=== PATIENT | male | born 1975 | race Caucasian/White ===

== ENCOUNTER 2020-09-17 15:13 | Observation (INO) | payer OTHER, SELFPAY ==
--- NOTE | ~2020-09-17 | US_ITS ---
EXAMINATION: US retroperitoneal duplex ltd, US renal BI DATE: 09/19/2020 16:39 INDICATION: Right renal infarct. TECHNIQUE: 1. Multiple grayscale and color Doppler images of the kidneys were obtained. 2. Multiple grayscale and pulsed Doppler images of the aorta and renal arteries were obtained. COMPARISON: CT dated 09/17/2020 FINDINGS: Kidneys: The right kidney measures 11.5 x 5.7 x 5.6 cm. The left kidney measures 12.4 x 6.1 x 5.9 cm. The kidn eys demonstrate normal echogenicity. There is no hydronephrosis in either kidney. No stones identifi ed. The bladder is normal. Unremarkable prostate measuring approximately 3.6 x 3.4 x 3.5 cm Renal arteries/vascular: The mid abdominal aorta is normal in caliber measuring 1.9 cm in maximal diameter. The aorta peak sys tolic velocity is 139 cm/s. The right renal artery peak systolic velocity is 124 cm/s in the proximal segment, 67 cm/s in the mid segment, and 46 cm/s in the distal segment. The left renal artery peak s ystolic velocity is 114 cm/s in the proximal segment, 86 cm/s in the mid segment, and 39 cm/s in the distal segment. IMPRESSION: 1. Normal kidneys with no hydronephrosis. 2. No Doppler evidence of renal artery stenosis. Reviewed, dictated and finalized at location A. IMPRESSION: 1. Normal kidneys with no hydronephrosis. 2. No Doppler evidence of renal artery stenosis.
--- NOTE | ~2020-09-17 | CT_ITS ---
EXAMINATION: CT abdomen pelvis w con INDICATION: Right lower abdominal pain TECHNIQUE: Computed tomographic images of the abdomen and pelvis were obtained after the administrati on of 100 cc of Omnipaque 350 intravenous contrast. The dose-length product (DLP) was 1150.53 mGy-cm. Automated exposure control and iterative reconstruction technique were employed. COMPARISON: None available FINDINGS: There are patchy groundglass opacities of the visualized lung bases. The heart size is norm al. The liver, spleen, pancreas, gallbladder, and adrenal glands are normal. There are nonobstructing stones measuring 7 mm and 4mm in the left kidney. There is decreased perfusion in the lower pole of the right kidney. A 3 mm nonobstructing stone is present in the lower pole of the right kidney. No pa thologically enlarged abdominal or pelvic lymph nodes are identified. There is no free intraperitonea l gas or evidence of bowel obstruction. The appendix is normal. IMPRESSION: 1. Decreased perfusion in the lower pole of the right kidney which could reflect infarct. 2. Groundglass opacities of the visualized lung bases in a distribution consistent with COVID 19 pneu monia. These findings were discussed with Dr. Grisel Shea MD in the Emergency Department at 1755 hours on 09/17/2020. Reviewed, dictated and finalized at location A. IMPRESSION: 1. Decreased perfusion in the lower pole of the right kidney which could reflec t infarct. 2. Groundglass opacities of the visualized lung bases in a distribution consist ent with COVID 19 pneumonia. These findings were discussed with Dr. Grisel Shea MD in the Emergency De partment at 1755 hours on 09/17/2020.
--- NOTE | ~2020-09-17 | XR_ITS ---
XR abdomen/kub 1V 09/18/2020 11:42 INDICATION: Right lower abdominal pain TECHNIQUE: KUB COMPARISON: None FINDINGS: Bowel gas pattern is normal. There is no evidence of free air, mass, organomegaly, ascites or obstruction. No abnormal calculi are seen. The bones appear intact. There are patchy bilateral infiltrates of the mid and lower lungs, suspicious for pneumonia. IMPRESSION: 1: No acute abdominal abnormality identified. 2: Patchy bilateral infiltrates of the mid and lower lungs, suspicious for pneumonia. Recommend omero elation with chest x-ray. Reviewed, dictated and finalized at location A. IMPRESSION: 1: No acute abdominal abnormality identified. 2: Patchy bilateral infiltrates of the mid and lower lungs, suspicious for pne umonia. Recommend correlation with chest x-ray.
[2020-09-17 15:16] VITALS: BP 146/81; PULSE 63; RESP 16; TEMP 36.6; O2SAT 99
[2020-09-17 15:51] LABS: Basophils Percent Auto 0.4 % (0.2-1.2); Eosinophils Percent Auto 0.2 % (0-4.4); Hematocrit 44.3 % (42.0-52.0); Hemoglobin 14.8 g/dL (14.0-18.0); Immature Granulocyte Absolute 0.02 K/mm3 (0.00-0.031); Immature Granulocyte Percent A 0.4 % (0-0.5); Lymphocytes Percent Auto 16.7 % (18.3-44.2); Mean Corpuscular HGB Conc 33.4 g/dl (32-36); Mean Corpuscular Hemoglobin 28.6 pg (26-34); Mean Corpuscular Volume 85.5 fl (80-100); Mean Platelet Volume 11.1 fl (7.4-10.4); Monocytes Absolute Auto 0.4 K/mm3 (0.1-0.6); Monocytes Percent Auto 6.7 % (2.6-8.5); Neutrophils Absolute Auto 4.1 K/mm3 (1.3-6.7); Neutrophils Percent Auto 75.6 % (45.5-73.1); Platelet Count Result 135 k/mm3 (150-375); Red Blood Count 5.18 M/mm3 (4.6-6.20); Red Cell Distribution Width 12.4 % (11.5-14.5); White Blood Count 5.4 K/mm3 (4.5-10.0)
--- NOTE | 2020-09-17 15:58 | ED.ABDPAIN ---
HPI - Abdominal Pain General Chief Complaint: Abdominal Pain Stated Complaint: abdominal pain and testicular pain Time Seen by Provider: 09/17/20 15:31 Source: patient Mode of arrival: ambulatory Limitations: no limitations History of Present Illness HPI narrative: This is a 45 year old male who presents for evaluation right lower abdominal pain. He states he developed right lower abdominal pain this morning. He reports pain that radiates to his right groin . He denies testicular swelling, redness or tenderness. He has nausea and vomiting. He states his pain started after vomiting . He reports he had a fever on Tuesday but he denies any fever since. HE also reports a mild cough that started on Tuesday. He denies shortness of breath. Related Data Home Medications Medication Instructions Recorded Confirmed cetirizine [Zyrtec] 10 mg PO DAILY 09/17/20 multivitamin [Multi-Day] 1 tablet PO DAILY 09/17/20 Allergies Allergy/AdvReac Type Severity Reaction Status Date / Time No Known Allergies Allergy Verified 09/17/20 15:32 Review of Systems Review of Systems: All systems reviewed & are unremarkable except as noted in HPI and below PMFSH Past Medical History Medical History (Updated 09/17/20 @ 19:42 by Grisel Shea MD) Patient denies medical problems Surgical History Surgical History (Updated 09/17/20 @ 19:39 by Grisel Shea MD) H/O inguinal hernia repair Social History Social History Smoking status: Never smoker Exam Const: General: no acute distress and alert Orientation/consciousness: patient oriented x3 Eyes: EOM: EOMs intact bilaterally Resp: Effort & Inspection: normal respiratory effort and no retractions Auscultation: clear to auscultation bilaterally Cardio: Rate: regular rate Rhythm: regular rhythm Heart sounds: no murmurs GI: GI Palp: Yes Soft to palpation, Yes Tenderness to palpation present (GI) (RLQ), No Guarding due to palpation present (GI) and No Rigid due to palpation Auscultation: normal bowel sounds : Male General Exam: Yes normal external exam Penis: Yes circumcised Scrotum: scrotum normal Testes: no epidiymal tenderness and no testicular tenderness Skin: General skin exam: normal color Rashes: no rashes Neuro: General: patient oriented x3, moves all extremities and CN's II-XI intact bilaterally Course Reevaluation(s) Reevaluation #1: I discussed with patient CT showing renal infarct and likely covid pneumonia. He may have increased clotting due to possible covid. His testicular exam is normal. Date: 09/17/20 Time: 18:00 Consultations Consultation #1: I Discussed case with swapnil márquez who accepts patient to hospitalist service. Date: 09/17/20 Time: 18:20 Vital Signs Vital signs: Vital Signs Temperature 97.9 F 09/17/20 15:16 Pulse Rate 63 09/17/20 15:16 Respiratory Rate 16 09/17/20 15:16 Blood Pressure 146/81 H 09/17/20 15:16 Pulse Oximetry 99 09/17/20 15:16 Temperature 97.9 F 09/17/20 15:16 Pulse Rate 67 09/17/20 18:29 Respiratory Rate 20 09/17/20 18:29 Blood Pressure 147/92 H 09/17/20 18:29 Pulse Oximetry 99 09/17/20 18:29 MDM - Abdominal Pain Lab Data Attestation: I reviewed the patient's lab results. Result diagrams: 09/17/20 15:42 09/17/20 15:42 Labs: Lab Results 09/17/20 09/17/20 09/17/20 Range/Units 15:42 15:42 15:46 WBC 5.4 (4.5-10.0) K/mm3 RBC 5.18 (4.6-6.20) M/mm3 Hgb 14.8 (14.0-18.0) g/dL Hct 44.3 (42.0-52.0) % MCV 85.5 (80-100) fl MCH 28.6 (26-34) pg MCHC 33.4 (32-36) g/dl RDW 12.4 (11.5-14.5) % Plt Count 135 L (150-375) k/mm3 MPV 11.1 H (7.4-10.4) fl Immature Gran % (Auto) 0.4 (0-0.5) % Neut % (Auto) 75.6 H (45.5-73.1) % Lymph % (Auto) 16.7 L (18.3-44.2) % [place] % (Auto) 6.7 (2.6-8.5) % Eos % (Auto) 0.2 (0-4.4) % Baso % (Auto) 0.4 (0.2-1.2) % Lymph # (
[2020-09-17 16:03] LABS: Alanine Aminotransferase 50 U/L (4-50); Albumin Level 4.6 g/dL (3.5-5.1); Alkaline Phosphatase 81 U/L (38-126); Anion Gap 11 mmol/L (8-16); Aspartate Amino Transferase 49 U/L (17-59); Bilirubin,Total 0.6 mg/dL (0.2-1.3); Blood Urea Nitrogen 16 mg/dL (9-20); Calcium 9.3 mg/dL (8.4-10.2); Carbon Dioxide 27 mmol/L (22-30); Chloride 100 mmol/L (98-107); Estimated CRCL calculation 148 ml/min; Estimated Glomerular Filt Rate > 60; Glucose 108 mg/dL (65-110); Lipase 59 U/L (23-300); Potassium 4.1 mmol/L (3.4-5.0); Sodium 138 mmol/L (137-145)
[2020-09-17] MEDS: SODIUM CHLORIDE 0.9% IV 1,000 ML 999 ML IV CONT (16:21)
[2020-09-17] MEDS: ONDANSETRON INJ 4 MG/2 ML VIAL IV PUSH (16:26)
[2020-09-17 16:28] LABS: Add Urine Microscopic? YES; Amorphous Sediment Urine Few; Appearance Urine Cloudy (Clear); Bilirubin Urine Negative (Negative); Blood Urine Negative (Negative); Color Urine Yellow (Yellow); Glucose Urine UA Negative (Negative); Ketones Urine Negative (Negative); Leukocyte Esterase Ur Negative LEU/UL (Negative); Mucus Urine Rare /lpf; Nitrate Urine Negative (Negative); Protein Urine 1+ mg/dL (Negative); RBC Urine 0-2 /hpf (0-2); Specific Grav Ur 1.023 (1.001-1.035); Squamous Epithelial Cell Urine Rare /hpf (Few); Urobilinogen Urine Negative mg/dL (<2.0); WBC Urine 0-3 /hpf
[2020-09-17] MEDS: HYDROmorphone HCL INJ (*CRX) 1 MG/ML SYR IV PUSH ×2 (16:29→20:37)
[2020-09-17 16:33] VITALS: BP 129/75; PULSE 61; RESP 12; O2SAT 97
[2020-09-17 17:54] VITALS: BP 118/76; PULSE 63; RESP 18; O2SAT 97
[2020-09-17 18:29] VITALS: BP 147/92; PULSE 67; RESP 20; O2SAT 99
[2020-09-17] MEDS: ENOXAPARIN 120 MG/0.8 ML SYRINGE SUB-Q (18:30)
[2020-09-17 18:55] LABS: Prothrombin Time 12.7 Seconds (11.1-14.7)
[2020-09-17 18:56] LABS: Partial Thromboplastin Time 25.7 SECONDS (22.3-36.8)
[2020-09-17 19:36] VITALS: BP 135/90; PULSE 62; RESP 18; O2SAT 97
[2020-09-17 19:45] VITALS: BP 127/63; PULSE 58; RESP 20; TEMP 36.3; O2SAT 97; BMI 34.2
[2020-09-17] MEDS: SODIUM CHLORIDE 0.9% IV 1,000 ML 125 ML IV CONT (20:32)
[2020-09-18] VITALS: BP 141/89; PULSE 64; RESP 18; TEMP 36.4; O2SAT 97
[2020-09-18] MEDS: HYDROmorphone HCL INJ (*CRX) 1 MG/ML SYR IV PUSH ×2 (01:25→06:06)
--- NOTE | 2020-09-18 03:53 | PM.IMHP ---
H&P: HPI History of Present Illness Date/Time: 09/18/20 03:53 Chief Complaint: right flank pain Narrative: This is a 45-year-old male with known significant past medical history the presented to the emergency room due to flank pain radiating to the right groin area. THIS STARTED EARLY IN THE MORNING HE WAITED OUT THINKING THAT HE WILL GO AWAY HOWEVER HE BECAME WORSE AND DECIDED TO COME TO THE EMERGENCY ROOM. HE DENIES ANY FEVERS ANY CHILLS ANY RIGORS ANY COUGH ANY SPUTUM PRODUCTION NO SHORTNESS OF BREATH NO DIARRHEA NO NAUSEA NO VOMITING. PRELIMINARY WORKUP WAS SIGNIFICANT FOR CT OF ABDOMEN AND PELVIS WHICH SHOWED INFILTRATES OF THE LUNGS BILATERAL SUSPICIOUS FOR COVID-19 PNEUMONIA BUT ALSO WAS SIGNIFICANT FOR SEVERAL STONES FOUND AT VARIOUS STAGES OF PASSING IN THE URETERS AND KIDNEYS WELL KIDNEY INFARCT. AT THE TIME OF MY VISIT PATIENT DENIED ANY OTHER ISSUES. Review of Systems Review of Systems: RIGHT FLANK PAIN Constitutional: Constitutional: Denies chills, Denies fatigue, Denies fever(s) and Denies malaise Eyes: Eyes: Denies change in vision ENT: Denies dysphagia, Denies nasal congestion, Denies nasal discharge, Denies nasal obstruction and Denies odynophagia Cardiovascular: Cardiovascular: Denies chest pain, Denies chest pain at rest, Denies chest pain with activity, Denies irregular heart rhythm, Denies radiating jaw, neck or arm pain, Denies palpitations and Denies orthopnea Respiratory: Respiratory: Denies cough, Denies dyspnea and Denies wheezing Gastrointestinal: Gastrointestinal: Reports abdominal pain ( RIGHT FLANK PAIN), Denies GI cramping, Denies dyspepsia, Denies heartburn, Denies diarrhea, Denies nausea and Denies vomiting Genitourinary: Genitourinary: Denies dysuria and Reports flank pain ( RIGHT-SIDED) Integumentary/Breasts: Skin/Breast: Reports system reviewed and no additional complaints, except as docu Neurologic: Reports system reviewed and no additional complaints, except as documented Psychiatric: Psychiatric: Reports no additional psychiatric complaints Endocrine: Endocrine: Reports no additional endocrine complaints Hematologic/Lymphatic: Hematologic/Lymphatic: Reports no additional hematologic/lymphatic complaints Allergic/Immunologic: Allergic/Immunologic: Reports no additional allergic/immunologic complaints PMF Past Medical History Medical History (Updated 09/18/20 @ 04:14 by Sherley Sheffield MD) Patient denies medical problems Surgical History Surgical History (Updated 09/17/20 @ 19:39 by Grisel Shea MD) H/O inguinal hernia repair Family History Family History (Updated 09/17/20 @ 20:25 by Maura Camp RN) Father Cerebrovascular accident COVID Heart attack Diabetes mellitus Social History Social History Smoking status: Never smoker Alcohol intake: former Substance use: never Gender identity (if verbalized by the patient): Male Spiritual care concerns: No Meds Home Medications and Allergies Home Medications Medication Instructions Recorded Confirmed Type Claritin 10 mg PO DAILY 09/17/20 09/17/20 History multivitamin [Multi-Day] 1 tablet PO DAILY 09/17/20 09/17/20 History Allergies Allergy/AdvReac Type Severity Reaction Status Date / Time No Known Allergies Allergy Verified 09/17/20 15:32 Vital Signs Vital Signs - 24 hr 09/17/20 15:16 09/17/20 16:33 09/17/20 17:54 Temperature 97.9 F Pulse Rate 63 61 63 Respiratory Rate 16 12 18 Blood Pressure 146/81 H 129/75 118/76 Pulse Oximetry 99 97 97 09/17/20 18:29 09/17/20 19:36 09/17/20 19:45 Temperature 97.4 F L Pulse Rate 67 62 58 L Respiratory Rate 20 18 20 Blood Pressure 147/92 H 135/90 127/63 Pulse Oximetry 99 97 97 09/18/20 00:00 Temperature 97.5 F L Pulse Rate 64 Respiratory Rate 18 Blood Pressure 141/89 H Pulse Oximetry 97 Exam Narrative: LAYING IN BED Const: General: cooperative, comfortable, no acute distress, well develope
[2020-09-18 04:00] VITALS: BP 120/76; PULSE 56; RESP 18; TEMP 36.4; O2SAT 96
[2020-09-18] MEDS: SODIUM CHLORIDE 0.9% IV 1,000 ML 125 ML IV CONT ×2 (06:06→15:50)
[2020-09-18 06:36] LABS: Basophils Percent Auto 0.3 % (0.2-1.2); Eosinophils Percent Auto 0.5 % (0-4.4); Hematocrit 40.5 % (42.0-52.0); Hemoglobin 13.4 g/dL (14.0-18.0); Immature Granulocyte Absolute 0.03 K/mm3 (0.00-0.031); Immature Granulocyte Percent A 0.5 % (0-0.5); Immature Platelet Fraction Pct 8.1 % (0.9-11.2); Lymphocytes Absolute Auto 1.08 K/mm3 (0.9-3.2); Lymphocytes Percent Auto 16.3 % (18.3-44.2); Mean Corpuscular HGB Conc 33.1 g/dl (32-36); Mean Corpuscular Hemoglobin 28.5 pg (26-34); Mean Platelet Volume 10.9 fl (7.4-10.4); Monocytes Absolute Auto 0.5 K/mm3 (0.1-0.6); Monocytes Percent Auto 7.7 % (2.6-8.5); Neutrophils Absolute Auto 4.9 K/mm3 (1.3-6.7); Neutrophils Percent Auto 74.7 % (45.5-73.1); Platelet Count Result 130 k/mm3 (150-375); Red Blood Count 4.71 M/mm3 (4.6-6.20); Red Cell Distribution Width 12.4 % (11.5-14.5); White Blood Count 6.6 K/mm3 (4.5-10.0)
[2020-09-18 06:49] LABS: Alanine Aminotransferase 49 U/L (4-50); Albumin Level 3.9 g/dL (3.5-5.1); Alkaline Phosphatase 70 U/L (38-126); Anion Gap 5 mmol/L (8-16); Aspartate Amino Transferase 49 U/L (17-59); Bilirubin,Total 0.5 mg/dL (0.2-1.3); Blood Urea Nitrogen 12 mg/dL (9-20); Calcium 8.3 mg/dL (8.4-10.2); Carbon Dioxide 31 mmol/L (22-30); Chloride 99 mmol/L (98-107); Estimated CRCL calculation 133 ml/min; Estimated Glomerular Filt Rate > 60; Glucose 106 mg/dL (65-110); Potassium 4.2 mmol/L (3.4-5.0); Sodium 135 mmol/L (137-145)
[2020-09-18 08:00] VITALS: BP 133/87; PULSE 60; RESP 16; TEMP 36.4; O2SAT 96
[2020-09-18] MEDS: LORATADINE 10 MG TABLET PO (09:56)
--- NOTE | 2020-09-18 10:39 | WPDURCON ---
Assessment and Plan Assessment and plan (1) Renal infarct: Code(s): N28.0 - Ischemia and infarction of kidney Status: Acute Assessment and Plan: Possibly secondary to COVID 19 and increased clotting factors, although he denies a previous history of blood clots. Extremities appear to have good blood flow, capillary refill is normal, no calf tenderness, erythema or pain bilaterally, and he denies chest pain. Would recommend consulting vascular to further evaluate, starting anticoagulants if patient is a good candidate. No further surgical evaluation is necessary at this time. I have discussed this plan with Dr. Scott (2) Bilateral kidney stones: Code(s): N20.0 - Calculus of kidney Status: Acute Assessment and Plan: A 7 and 4mm stone is present in the left kidney and a 3mm in the lower pole of the right kidney, all are non obstructive. Will obtain a KUB while here for potential ESWL of the left side in the future, to see if stones are visible. No surgical plans at any time in the near future, his pain is not caused by these stones as they are non obstructive. Urology Consult Note HPI Date Seen: 09/18/20 Requesting Physician: Karlee Hidalgo MD Primary Care Provider: Jose Raul AlmanzarJr. MD Consult Narrative Narrative: Osito Shafer is a 45 year old male who presented to the ER yesterday for acute onset of right lower quadrant pain that developed yesterday morning suddenly. He states he was walking through his garage and the pain dropped him to his knees and made him vomit. He thought he was passing a kidney stone as he has passed several spontaneously in the past. His creatinine on arrival was 0.80, WBC was 6.[address] scan showed decreased perfusion to the lower pole of the right kidney, suggesting an infarct, as well as opacities consistent in the lungs with COVID [address] also shows 3 non obstructive kidney stones measuring 7 and 4mm in the left kidney and 3mm in the right kidney. He denies hematuria, frequency, urgency, dysuria or flank pain at this time. He is afebrile and his vitals are stable. He is not short of breath and is resting comfortably in bed. Review of Systems Cardiovascular: Cardiovascular: Denies chest pain Respiratory: Respiratory: Reports no additional respiratory complaints Gastrointestinal: Gastrointestinal: Reports abdominal pain, Denies nausea and Denies vomiting Genitourinary: Genitourinary: Denies hematuria, Denies dysuria, Denies flank pain, Denies testicular pain, Denies urinary frequency and Denies urinary hesitancy PMF Past Medical History Medical History Patient denies medical problems Surgical History Surgical History H/O inguinal hernia repair Family History Family History Father Cerebrovascular accident COVID Heart attack Diabetes mellitus Social History Social History Smoking status: Never smoker Alcohol intake: former Substance use: never Gender identity (if verbalized by the patient): Male Spiritual care concerns: No Meds Home Medications and Allergies Home Medications Medication Instructions Recorded Confirmed Type Claritin 10 mg PO DAILY 09/17/20 09/17/20 History multivitamin [Multi-Day] 1 tablet PO DAILY 09/17/20 09/17/20 History Allergies Allergy/AdvReac Type Severity Reaction Status Date / Time No Known Allergies Allergy Verified 09/17/20 15:32 Vital Signs Vital Signs - 24 hr 09/17/20 15:16 09/17/20 16:33 09/17/20 17:54 Temperature 97.9 F Pulse Rate 63 61 63 Respiratory Rate 16 12 18 Blood Pressure 146/81 H 129/75 118/76 Pulse Oximetry 99 97 97 09/17/20 18:29 09/17/20 19:36 09/17/20 19:45 Temperature 97.4 F L Pulse Rate 67 62 58 L Respira
[2020-09-18 11:58] VITALS: BMI 34.2
--- NOTE | 2020-09-18 13:21 | PCNSR ---
On 09/18/20, the student, Candie Ann, provided care and [facility]. I have reviewed the student's documentation and agree with the findings.
--- NOTE | 2020-09-18 13:35 | PM.IMPN ---
Progress Note: A&P Assessment and Plan (1) Kidney stone on right side: Code(s): N20.0 - Calculus of kidney Status: Acute Assessment and Plan: Sodium chloride 125 per hour urology consult thank you for your recommendations I&Os strain all urine supportive care (2) Pneumonia: Code(s): J18.9 - Pneumonia, unspecified organism Status: Acute Assessment and Plan: infiltrate ground-glass opacities found on CT started on Rocephin and Zithromax COVID swab pending DC antibiotics when COVID swab comes back. (3) Renal infarct: Code(s): N28.0 - Ischemia and infarction of kidney Status: Acute Assessment and Plan: Monitor cardiology consult thank you might need vascular surgery (4) Flank pain: Code(s): R10.9 - Unspecified abdominal pain Status: Acute Assessment and Plan: likely from the kidney stone Dilaudid 1 mg IV Q 4 p.r.n. for pain Zofran 4 mg IV push Q 4 p.r.n. for nausea (5) COVID-19: Code(s): U07.1 - COVID-19 Status: Acute Assessment and Plan: CT found ground-glass opacities congruent with COVID-19 a azithromycin and Rocephin started until COVID comes back COVID swab pending no need oxygen patient on room air no signs or symptoms noted Subjective Date/time seen: 09/18/20 12:15 Interval history: patient is a 45-year-old male with no known significant past medical history that presents the emergency room due to flank pain that is radiating to the right groin. Patient stated that his pain is still there and it is 6/10 and it is an aching however it is better. Patient also said that he is fatigued and tired he has been leading up to this. He also stated that he had some sweats however that is normal as well. Patient also said that he has been able to urinate in he feels like he is emptying each time. Urology has been consulted and saw the patient wanted cardiology to be involved since the patient has renal infarct shown on his CT. It also showed several stones or passing in the kidneys as well. Patient denies chest pain, shortness of breath, nausea, vomiting, diarrhea, constipation, fevers, chills, numbness tingling, weakness or syncope. Review of Systems Review of Systems: All systems reviewed & are unremarkable except as noted in HPI and below Exam Const: General: cooperative, comfortable, no acute distress, well developed, alert and awake Nutritional Appearance: overweight Orientation/consciousness: patient oriented x3 HENMT: Head: normal to inspection, normocephalic and atraumatic Ears: hearing grossly normal bilaterally General nose exam: Normal external nose present Face and sinus: normal facial exam Eyes: General: appearance normal, both eyes and all related structures Alignment and Position: alignment normal Sclera: sclerae normal Pupils: Equal, round and reactive pupils present EOM: EOMs intact bilaterally Neck: Neck: full ROM, no lymphadenopathy, supple and no JVD Thyroid: thyroid normal Lymphatic: no lymphadenopathy noted Resp: Effort & Inspection: normal respiratory effort and able to speak in complete sentences Auscultation: clear to auscultation bilaterally, no crackles, no rales, no rhonchi and no wheezes Cardio: Jugular venous distension: no JVD Rate: regular rate Rhythm: regular rhythm Heart sounds: S1 normal heart sound present and S2 normal heart sound present GI: Inspection: normal to inspection : General: No no CVA tenderness and Yes deferred Back/Spine/Pelvis: Back: No no CVA tenderness Skin: General skin exam: normal color Rashes: no rashes Wounds: no wounds Neuro: General: patient oriented x3 and CN's II-XI intact bilaterally Cranial nerves: Yes CN's II-XII intact bilaterally and Yes Equal, round and reactive pupils present Cognition (Neuro): normal cognition Speech: normal speech Gait exam (Ne
[2020-09-18 14:00] VITALS: BP 132/70; PULSE 72; RESP 18; TEMP 36.7; O2SAT 95
[2020-09-18 17:00] VITALS: BP 139/81; PULSE 65; RESP 18; TEMP 36.7; O2SAT 97
[2020-09-18 18:09] LABS: SARS-CoV-2 RNA PCR Negative
--- NOTE | 2020-09-18 19:46 | PM.CNCAR ---
Assessment and Plan Assessment and plan (1) Renal infarct: Code(s): N28.0 - Ischemia and infarction of kidney Status: Acute Assessment and Plan: Healthy appearing WM w/ possible renal infarct. Has been afebrile , denies IV drug use, and white count is normal so endocarditis is not likely. No evidence of AFib at this point. Exam and history are fairly unremarkable so we may not find anything; this may be an artifact but we should rule out myxoma, tumor size, cardiac thrombus, severe aortic atherosclerosis etc Agree with evaluation for cardioembolic source. Will schedule an echo tomorrow and if there is nothing obvious a GABE to follow. Consider a renal artery ultrasound or a CTA of the aorta and secondary vessels (yojana right renal artery) to evaluate the vasculature of the abdomen. (2) Pneumonia: Code(s): J18.9 - Pneumonia, unspecified organism Status: Acute Assessment and Plan: Questionable pneumonia by CT scan. No sx except sweats last w/e. WBC WNL Will order a CXR. History of Present Illness History of Present Illness Consult date/time: 09/18/20 19:46 Reason For Visit: Right Renal Infarct, Pneumonia, Suspected COVID Narrative: Date of service 09/18/2020: Mr. Osito Shafer is a 45-year-old white male [place] whom we were asked to see at the request of the hospitalist for our advice and opinion regarding his renal infarct and possible cardiac source of emboli, in consultation. The patient felt somewhat bad over the weekend with nasal congestion and sudden sweats, thinking he had a cold. He improved but on Tuesday he had sudden nausea and vomiting, Right flank pain radiating to the right groin. the pain was so bad he had to lie on the ground. CT of the abdomen and pelvis suggested a possible segmental right renal infarction as well as kidney stones. (it also showed pulmonary infiltrates; he was started on antibiotics and is COVID screen was negative. )He was seen by Dr. Scott who recommended evaluation for cardioembolic source such as vegetations, AFib etc. and a vascular surgery consultation to evaluate his renal artery. The patient denies any drug use. No recent infections. No history of any palpitations. No rashes or skin lesions. No definite fevers. No history of any GRIJALVA or chest pain. this episode was much different than when he had passed a kidney stone in the past. No cough, wheezing or shortness of breath. Review of Systems Constitutional: Constitutional: Reports fatigue Eyes: Eyes: Reports no additional eye complaints ENT: Denies epistaxis and Reports nasal congestion Cardiovascular: Cardiovascular: Denies chest pain, Denies leg edema, Denies lightheadedness and Denies palpitations Respiratory: Respiratory: Denies chest congestion, Denies cough, Denies hemoptysis, Denies dyspnea, Denies dyspnea on exertion and Denies wheezing Gastrointestinal: Gastrointestinal: Reports abdominal pain, Denies melena and Denies hematochezia Comments: no history of any esophageal strictures Genitourinary: Genitourinary: Denies hematuria, Denies dysuria, Reports flank pain and Denies urinary frequency Musculoskeletal: Musculoskeletal: Denies back pain Integumentary/Breasts: Skin/Breast: Denies rash Neurologic: Denies confusion Psychiatric: Psychiatric: Denies confusion [facility] Past Medical History Medical History (Updated 09/18/20 @ 22:07 by Georgina Rodriguez MD) Kidney stones Patient denies medical problems Surgical History Surgical History H/O inguinal hernia repair Family History Family History (Updated 09/18/20 @ 22:08 by Georgina Rodriguez MD) Father Cerebrovascular accident COVID Heart attack Diabetes mellitus Mother Motor vehicle accident Social History Social History (Updated 09/18/20 @ 22:09 by Georgina Sapp
[2020-09-18 21:47] VITALS: BP 142/63; PULSE 73; RESP 18; TEMP 36.4; O2SAT 97
[2020-09-19] VITALS (12 sets, daily range): BP systolic 121–150; BP diastolic 64–97; PULSE 66–127; RESP 11–23; TEMP 36.4; O2SAT 92–100
[2020-09-19] MEDS: SODIUM CHLORIDE 0.9% IV 1,000 ML 125 ML IV CONT ×3 (02:20→15:53)
[2020-09-19 06:37] LABS: Hematocrit 42.1 % (42.0-52.0); Hemoglobin 14.1 g/dL (14.0-18.0); Mean Corpuscular HGB Conc 33.5 g/dl (32-36); Mean Corpuscular Hemoglobin 28.6 pg (26-34); Mean Corpuscular Volume 85.4 fl (80-100); Mean Platelet Volume 11.3 fl (7.4-10.4); Platelet Count Result 151 k/mm3 (150-375); Red Blood Count 4.93 M/mm3 (4.6-6.20); Red Cell Distribution Width 12.1 % (11.5-14.5); White Blood Count 5.9 K/mm3 (4.5-10.0)
[2020-09-19 06:54] LABS: Alanine Aminotransferase 57 U/L (4-50); Albumin Level 3.9 g/dL (3.5-5.1); Alkaline Phosphatase 68 U/L (38-126); Anion Gap 11 mmol/L (8-16); Aspartate Amino Transferase 51 U/L (17-59); Bilirubin,Total 0.6 mg/dL (0.2-1.3); Blood Urea Nitrogen 11 mg/dL (9-20); Calcium 8.8 mg/dL (8.4-10.2); Carbon Dioxide 27 mmol/L (22-30); Chloride 101 mmol/L (98-107); Estimated CRCL calculation 133 ml/min; Estimated Glomerular Filt Rate > 60; Glucose 103 mg/dL (65-110); Magnesium 2.1 mg/dL (1.6-2.3); Potassium 3.8 mmol/L (3.4-5.0); Sodium 139 mmol/L (137-145)
--- NOTE | 2020-09-19 10:13 | WPDUROPN2 ---
Progress Note: A&P Assessment and Plan (1) Flank pain: Code(s): R10.9 - Unspecified abdominal pain Status: Acute (2) Renal infarct: Code(s): N28.0 - Ischemia and infarction of kidney Status: Acute Assessment and Plan: Appreciate Dr. Salinas's input. Plans for cardiac echo and possible GABE noted. Will plan renal artery ultrasound. Subjective Subjective Date/Time Seen: 09/19/20 10:13 Comfortable, undergoing cardiac echo Covid tests: negative Review of Systems Cardiovascular: Cardiovascular: Denies chest pain, Denies lightheadedness, Denies palpitations and Denies dyspnea Respiratory: Respiratory: Denies dyspnea Gastrointestinal: Gastrointestinal: Denies diarrhea, Denies nausea and Denies vomiting Genitourinary: Genitourinary: Denies hematuria and Denies dysuria Endocrine: Endocrine: Denies palpitations Exam Const: General: no acute distress Resp: Effort & Inspection: normal respiratory effort GI: Inspection: non-distended GI Palp: No abdominal tenderness and No Guarding due to palpation present (GI) Auscultation: normal bowel sounds Objective Data Vital Signs Vital Signs: Vital Signs - 24 hr 09/18/20 14:00 09/18/20 17:00 09/18/20 21:47 Temperature 98.0 F 98.1 F 97.6 F Pulse Rate 72 65 73 Respiratory Rate 18 18 18 Blood Pressure 132/70 139/81 142/63 H Pulse Oximetry 95 97 97 09/19/20 05:30 Temperature 97.6 F Pulse Rate 66 Respiratory Rate 18 Blood Pressure 121/74 Pulse Oximetry 96 Intake/Output Intake/Output: Intake & Output 09/16/20 09/17/20 09/18/20 09/19/20 23:59 23:59 23:59 23:59 Intake Total 1400 5880 250 Balance 1400 5880 250 Meds/Results Medications: Active Medications Generic Name Dose Route Start Last Admin Trade Name Freq PRN Reason Stop Dose Admin Hydromorphone HCl 1 mg 09/17/20 18:29 09/18/20 06:06 Hydromorphone Hcl Inj (*Crx) 1 Mg/Ml Syr IV PUSH 1 mg Q4H PRN Administration Pain Rated 7-10 Sodium Chloride 1,000 mls @ 125 mls/hr 09/17/20 18:30 09/19/20 02:20 Normal Saline Iv IV CONT 125 mls/hr .Q8H TAMIKA Administration Azithromycin 500 mg in 250 mls @ 250 mls/hr 09/18/20 22:00 09/18/20 22:33 Zithromax IVPB Infused Q24H TAMIKA Infusion Ceftriaxone Sodium/Dextrose 1 gm in 50 mls @ 100 mls/hr 09/18/20 21:00 09/18/20 20:50 Rocephin 1 Gm/D5w 50 Ml IVPB Infused Q24H TAMIKA Infusion Loratadine 10 mg 09/18/20 09:00 09/18/20 09:56 Loratadine 10 Mg Tablet PO 10 mg QAM TAMIKA Administration Ondansetron HCl 4 mg 09/17/20 18:29 Ondansetron Inj 4 Mg/2 Ml Vial IV PUSH Q4H PRN Nausea Radiology Results: ITS Impressions Abdomen/Pelvis CT 09/17/20 17:25 IMPRESSION: 1. Decreased perfusion in the lower pole of the right kidney which could reflect infarct. 2. Groundglass opacities of the visualized lung bases in a distribution consistent with COVID 19 pneumonia. These findings were discussed with Dr. Grisel Shea MD in the Emergency Department at 1755 hours on 09/17/2020. Abdomen X-Ray 09/18/20 12:09 IMPRESSION: 1: No acute abdominal abnormality identified. 2: Patchy bilateral infiltrates of the mid and lower lungs, suspicious for pneumonia. Recommend correlation with chest x-ray. Labs Labs: Laboratory Results - last 24 hr 09/17/20 09/19/20 09/19/20 18:24 06:19 06:19 WBC 5.9 RBC 4.93 Hgb 14.1 Hct 42.1 MCV 85.4 MCH 28.6 MCHC 33.5 RDW 12.1 Plt Count 151 MPV 11.3 H Sodium 139 Potassium 3.8 Chloride 101 Carbon Dioxide 27 Anion Gap 11 BUN 11 Creatinine 0.80 Estim Creat Clear Calc 133 Estimated GFR > 60 Glucose 103 Calcium 8.8 Magnesium 2.1 Total Bilirubin 0.6 AST 51 ALT 57 H Alkaline Phosphatase 68 Total Protein 7.0 Albumin 3.9 SARS-CoV-2 RNA (RT-PCR) Negative Quality VTE Prophylaxis VTE prophylaxis: mechanical ordered (scd)
[2020-09-19] MEDS: PERFLUTREN LIPID MICROSPHERES 1.5 ML VIAL DILUTED TO 10 ML TOTAL VOLUME IV PUSH (10:18)
--- NOTE | 2020-09-19 12:28 | PM.PNCARD ---
Progress Note: A&P Additional Plan 45-year-old man with: Right renal infarction otherwise has been in good health. Echocardiogram does not disclose any obvious reason for a cardioembolic event. As per Dr. castillo consult note I will proceed with a transesophageal echo this today to try to rule out a occult patent foramen ovale as a possible embolic source Karel Rodriguez MD [facility] Subjective Date/time seen: date of service:09/19/20 12:28 Interval history: 45-year-old man with: Right renal infarction with no prior cardiac/ vascular history or risk factors to explain this event. Consult the to see him to rule out a cardioembolic source. Patient is feeling better today flank pain is significantly better than yesterday. Discussed with the patient that his echocardiogram which I read a short time ago is unremarkable. Exam Const: General: comfortable and no acute distress Other: Somewhat anxious but otherwise comfortable patient HENMT: Mouth: Yes moist mucous membranes Eyes: Sclera: sclerae normal Pupils: Equal, round and reactive pupils present Neck: Neck: supple and no JVD Thyroid: thyroid normal Resp: Effort & Inspection: normal respiratory effort Auscultation: clear to auscultation bilaterally Cardio: Rate: regular rate Rhythm: regular rhythm Other: unremarkable cardiac exam GI: GI Palp: Yes Soft to palpation Auscultation: normal bowel sounds Skin: General skin exam: normal color Neuro: Cognition (Neuro): normal cognition Extrem: General: normal to inspection Objective Data Vital Signs Vital Signs: Vital Signs - 24 hr 09/18/20 14:00 09/18/20 17:00 09/18/20 21:47 Temperature 36.7 C 36.7 C 36.4 C Pulse Rate 72 65 73 Respiratory Rate 18 18 18 Blood Pressure 132/70 139/81 142/63 H Pulse Oximetry 95 97 97 09/19/20 05:30 Temperature 36.4 C Pulse Rate 66 Respiratory Rate 18 Blood Pressure 121/74 Pulse Oximetry 96 Intake/Output Intake/Output: Intake & Output 09/16/20 09/17/20 09/18/20 09/19/20 23:59 23:59 23:59 23:59 Intake Total 1400 5880 1250 Balance 1400 5880 1250 Meds/Results Medications: Active Medications Generic Name Dose Route Start Last Admin Trade Name Freq PRN Reason Stop Dose Admin Hydromorphone HCl 1 mg 09/17/20 18:29 09/18/20 06:06 Hydromorphone Hcl Inj (*Crx) 1 Mg/Ml Syr IV PUSH 1 mg Q4H PRN Administration Pain Rated 7-10 Sodium Chloride 1,000 mls @ 125 mls/hr 09/17/20 18:30 09/19/20 10:17 Normal Saline Iv IV CONT 125 mls/hr .Q8H TAMIKA Administration Azithromycin 500 mg in 250 mls @ 250 mls/hr 09/18/20 22:00 09/18/20 22:33 Zithromax IVPB Infused Q24H TAMIKA Infusion Ceftriaxone Sodium/Dextrose 1 gm in 50 mls @ 100 mls/hr 09/18/20 21:00 09/18/20 20:50 Rocephin 1 Gm/D5w 50 Ml IVPB Infused Q24H TAMIKA Infusion Loratadine 10 mg 09/18/20 09:00 09/18/20 09:56 Loratadine 10 Mg Tablet PO 10 mg QAM TAMIKA Administration Ondansetron HCl 4 mg 09/17/20 18:29 Ondansetron Inj 4 Mg/2 Ml Vial IV PUSH Q4H PRN Nausea Radiology Results: ITS Impressions Abdomen/Pelvis CT 09/17/20 17:25 IMPRESSION: 1. Decreased perfusion in the lower pole of the right kidney which could reflect infarct. 2. Groundglass opacities of the visualized lung bases in a distribution consistent with COVID 19 pneumonia. These findings were discussed with Dr. Grisel Shea MD in the Emergency Department at 1755 hours on 09/17/2020. Abdomen X-Ray 09/18/20 12:09 IMPRESSION: 1: No acute abdominal abnormality identified. 2: Patchy bilateral infiltrates of the mid and lower lungs, suspicious for pneumonia. Recommend correlation with chest x-ray. Labs Labs: Laboratory Results - last 24 hr 09/17/20 09/19/20 09/19/20 18:24 06:19 06:19 WBC 5.9 RBC 4.93 Hgb 14.1 Hct 42.1 MCV 85.4 MCH 28.6 MCHC 33.5 RDW 12.1 Plt Count 151 MPV 11.3 H Sodium 139 Potassium
--- NOTE | 2020-09-19 13:40 | WPDMODSED ---
Moderate Sedation Note-Pt Data Patient Data Diagnosis: renal infarction Present Complaint: flank pain Procedure to be performed/Plan: transesophageal echocardiogram Allergies Allergy/AdvReac Type Severity Reaction Status Date / Time No Known Allergies Allergy Verified 09/17/20 15:32 Home Medications Medication Instructions Recorded Confirmed Type Claritin 10 mg PO DAILY 09/17/20 09/17/20 History multivitamin [Multi-Day] 1 tablet PO DAILY 09/17/20 09/17/20 History Current Medications: Active Medications Hydromorphone HCl (Hydromorphone Hcl Inj (*Crx) 1 Mg/Ml Syr) 1 mg IV PUSH Q4H PRN PRN Reason: Pain Rated 7-10 Last Admin: 09/18/20 06:06 Dose: 1 mg Documented by: Sodium Chloride (Normal Saline Iv) 1,000 mls @ 125 mls/hr IV CONT .Q8H TAMIKA Last Admin: 09/19/20 10:17 Dose: 125 mls/hr Documented by: Azithromycin (Zithromax) 500 mg in 250 mls @ 250 mls/hr IVPB Q24H [facility] Last Infusion: 09/18/20 22:33 Dose: Infused Documented by: Ceftriaxone Sodium/Dextrose (Rocephin 1 Gm/D5w 50 Ml) 1 gm in 50 mls @ 100 mls/hr IVPB Q24H [facility] Last Infusion: 09/18/20 20:50 Dose: Infused Documented by: Loratadine (Loratadine 10 Mg Tablet) 10 mg PO QAM [facility] Last Admin: 09/18/20 09:56 Dose: 10 mg Documented by: Ondansetron HCl (Ondansetron Inj 4 Mg/2 Ml Vial) 4 mg IV PUSH Q4H PRN PRN Reason: Nausea Sedation/Anesthesia: No previous sedation/anesthesia problems (including family history). 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 Smoking status: Never smoker Alcohol intake: former Substance use: never Gender identity (if verbalized by the patient): Male Spiritual care concerns: No Mod Sed Physical Exam Physical Exam Pre Procedural Exam: Normal: Neck, Throat, Airway, Lungs, Heart Size, Heart Rate, Heart Rhythm, Neuro Exam and Extremities and Variation: Appearance ( overweight white male no apparent distress) Hours since solid foods: 12 Hours since liquid intake: 12 Mallampati Classification: class II Internal Medicine - PN: Obj Da Vital Signs Vital Signs: Vital Signs - 24 hr 09/18/20 14:00 09/18/20 17:00 09/18/20 21:47 Temperature 36.7 C 36.7 C 36.4 C Pulse Rate 72 65 73 Respiratory Rate 18 18 18 Blood Pressure 132/70 139/81 142/63 H Pulse Oximetry 95 97 97 09/19/20 05:30 Temperature 36.4 C Pulse Rate 66 Respiratory Rate 18 Blood Pressure 121/74 Pulse Oximetry 96 Intake/Output Intake/Output: Intake & Output 09/16/20 09/17/20 09/18/20 09/19/20 23:59 23:59 23:59 23:59 Intake Total 1400 5880 1250 Balance 1400 5880 1250 Meds/Results Medications: Active Medications Generic Name Dose Route Start Last Admin Trade Name Freq PRN Reason Stop Dose Admin Hydromorphone HCl 1 mg 09/17/20 18:29 09/18/20 06:06 Hydromorphone Hcl Inj (*Crx) 1 Mg/Ml Syr IV PUSH 1 mg Q4H PRN Administration Pain Rated 7-10 Sodium Chloride 1,000 mls @ 125 mls/hr 09/17/20 18:30 09/19/20 10:17 Normal Saline Iv IV CONT 125 mls/hr .Q8H TAMIKA Administration Azithromycin 500 mg in 250 mls @ 250 mls/hr 09/18/20 22:00 09/18/20 22:33 Zithromax IVPB Infused Q24H TAMIKA Infusion Ceftriaxone Sodium/Dextrose 1 gm in 50 mls @ 100 mls/hr 09/18/20 21:00 09/18/20 20:50 Rocephin 1 Gm/D5w 50 Ml IVPB Infused Q24H TAMIKA Infusion Loratadine 10 mg
--- NOTE | 2020-09-19 14:01 | WPDCARDPROC ---
Cardiac Cath Procedure Note Date of procedure:: 09/19/20 Performing physician:: Karel Rodriguez MD Indication:: renal infarction Brief clinical history:: this is a 45-year-old man without significant previous medical history who presented with flank pain is been found to have a right renal infarction. To rule out a patent foramen ovale this examination has been requested Procedure Procedure performed:: transesophageal echocardiogram Sedation/Medication given:: fentanyl 100 mg Versed 6 mg sedation provided by Sara Pappas RN, trained observer Estimated blood loss:: no blood loss Procedure note:: patient was brought to the cardiac catheterization lab holding area in the postabsorptive state where he was placed in the supine position. Or pharyngeal benzocaine was sprayed for topical anesthesia in the oropharynx. After this a bite block was placed into position and intravenous sedation was then given. The patient in aliquots received a total of 100 mg of fentanyl and 6 mg of Versed. He was sedated but a as soon as the GABE probe was placed into the esophagus the patient became aroused and agitated and pulled the probe out of the esophagus. He was gagging and becoming tachycardic and was clearly not going to tolerate the procedure safely. For his safety I then aborted the procedure Findings:: no findings to report as detailed above Conclusion:: 1. unsuccessful but uncomplicated attempted transesophageal echocardiogram. If this is if this procedure is to be done and will need to be done at another setting with anesthesia with more deep sedation to be provided. Karel Rodriguez MD [facility]
--- NOTE | 2020-09-19 14:22 | SUR.OPER ---
Patient sedated for procedure using moderate sedation and local hurricane spray. Dr. Rodriguez attempted to insert GABE probe, to which patient began aggressively pulling on the probe in an attempt to stop it from entering his mouth. Patient became tachycardic and was unable to remain calm. Dr. Rodriguez aborted procedure at this time.
--- NOTE | 2020-09-19 14:29 | PCCARD ---
GABE aborted. Pt unable to tolerate probe. Constantino
--- NOTE | 2020-09-19 15:12 | SUR.PHASEII ---
Patient transported back to [facility] via bed. DIANNE Rajan notified. Dr. Rodriguez notified. Patient's at bedside.
[2020-09-19] MEDS: LORATADINE 10 MG TABLET PO (15:52)
--- NOTE | 2020-09-19 17:50 | PM.DS ---
DS: Admitting Diagnosis Admitting Diagnosis kidney stones DS: Discharge Diagnosis Discharge Diagnosis (1) Kidney stone on right side: Code(s): N20.0 - Calculus of kidney Status: Acute Assessment and Plan: Sodium chloride 125 per hour urology consult thank you for your recommendations I&Os strain all urine supportive care echocardiogram showed an EF of 65-70% with no noted issues hamzah was started but was unable to be performed due to sedation level patient. Renal ultrasound showed normal kidneys with blood flow to and from both kidneys (2) Pneumonia: Code(s): J18.9 - Pneumonia, unspecified organism Status: Acute Assessment and Plan: infiltrate ground-glass opacities found on CT started on Rocephin and Zithromax COVID swab negative DC antibiotics when COVID swab comes back. will DC patient on 5 days of Augmentin (3) Renal infarct: Code(s): N28.0 - Ischemia and infarction of kidney Status: Acute Assessment and Plan: Monitor cardiology consult thank you might need vascular surgery echocardiogram performed with an EF of 60-65% no abnormalities noted HAMZAH was unable to be performed due to patient's sedation level (4) Flank pain: Code(s): R10.9 - Unspecified abdominal pain Status: Acute Assessment and Plan: likely from the kidney stone Dilaudid 1 mg IV Q 4 p.r.n. for pain Zofran 4 mg IV push Q 4 p.r.n. for nausea (5) COVID-19: Code(s): U07.1 - COVID-19 Status: Acute Assessment and Plan: CT found ground-glass opacities congruent with COVID-19 a azithromycin and Rocephin started until COVID comes back COVID swab negative no need oxygen patient on room air no signs or symptoms noted DS: Summary Hospital Course Hospital Course: Date of service 09/19/20 09:55 Patient is a 45-year-old male with no known significant past medical history that presents the emergency room due to flank pain that is radiating to the right groin. since admission patient has been seen by urology who felt like the patient need a cardiac consult due to findings within the CT. Abdominal CT found decreased perfusion in the lower pole of the right kidney which could reflect infarct. It also found ground-glass opacities in lung bases consistent with COVID-19. COVID swab came back negative patient was also started on IV antibiotics consisting of ceftriaxone and a Zithromax. patient's white count has remained stable at 5.9. Patient also had an echocardiogram performed which stated the patient an EF of 55-60% with no Abnormalities noted. patient stated he has not had any pain today and that he feels lot better he does have a little bit of light appetite however he feels like it is going to get better. Patient has no complaints of chest pain shortness of breath, nausea, vomiting, sweats, chills, fevers. I did talk to Dr. menjivar who would think the patient need to be on Plavix and would like to follow-up with him in 3-4 weeks. Patient also will need to probably follow-up with Dr. Rodriguez. Status at Discharge Functional status at discharge: independent ambulation Overall status at discharge: patient is back to baseline Time Spent with Patient Time attestation: Total time spent providing and/or coordinating discharge services: 66 minutes Time spent: Greater than 30 minutes Specific discharge activities: care coordination, education, documentation, chart review, lab review, diagnostic testing, physical exam Exam Const: General: cooperative, comfortable, no acute distress, well developed, alert and awake Nutritional Appearance: overweight Orientation/consciousness: patient oriented x3 HENMT: Head: normal to inspection, normocephalic and atraumatic Ears: hearing grossly normal bilaterally General nose exam: Normal external nose present Face and sinus: normal facial exam
--- NOTE | 2020-09-19 22:00 | ECHO_ITS ---
Patient Info Name: Osito Shafer Age: 45 years : 1975 Gender: Male Ht: 72 in Wt: 252 lbs BSA: 2.45 m2 HR: 76 bpm BP: 121 / 74 mmHg Heart Rhythm: Sinus Rhythm Technical Quality: Fair Exam Date: 09/19/2020 9:44 AM Exam Location: [facility] Card Pulmonary Patient Status: Inpatient Admit Date: 09/17/2020 Staff Ordering Physician: Georgina Rodriguez MD Driver License Examiner: Kaitlin Brewster RDCS Attending Provider: Karlee Hidalgo MD Referring Physician: Michael RODRIGUEZ; Exam Type: CA echo dop color flow w con Study Info Indications - CARDIAC EMBOLI - RENAL INFARCT Complete two-dimensional, color flow and Doppler transthoracic echocardiogram is performed with contrast to opacify the left ventricle and to improve the deliniation of the left ventricle endocardial borders. Contrast/Agitated Saline Contrast/Ag. Saline: Definity Amount: 1.00 ml Administered By: Ronel Feldman RN Existing IV Access: Yes IV Access Condition: patent with no signs of infiltration Summary 1. Definity contrast injected to improve visualization. 2. Normal left and right ventricular systolic function. 3. Intact interatrial septum. 4. Normal sinus rhythm. 5. No mitral valve disease. 6. No likely reason for a cardioembolic event was identified. Left Ventricle Left ventricular chamber dimension is normal. Left ventricular systolic function is normal, estimated at 65-70%. The left ventricular diastolic function is normal. Right Ventricle Right ventricular chamber dimension is normal. Left Atria Left atrial chamber dimension is normal. Right Atria Right atrial chamber dimension is normal. Atrial Septum Intact interatrial septum visualized by color flow imaging. Aortic Valve The aortic valve is normal. Pulmonic Valve The pulmonic valve is not well visualized. Mitral Valve The mitral valve has normal leaflets. Tricuspid Valve The tricuspid valve leaflets are normal. Pericardium/Pleural The pericardium appears normal. Aorta The aortic root size at the sinus of Valsalva is normal. The prox ascending aorta size is normal. Left Ventricular Outflow Tract Name Value Normal LVOT 2D LVOT Diameter 2.18 cm LVOT Doppler LVOT Peak Gradient 4 mmHg LVOT Mean Gradient 2 mmHg LVOT VTI 19.90 cm LVOT VTI/AV VTI Ratio 0.77 LVOT Stroke Volume 73.91 ml LVOT CO 5.25 l/min LVOT CI 2.15 L/min/m2 Pulmonic Valve Name Value Normal RVOT Doppler RVOT Peak Gradient 2 mmHg PV Doppler PV Peak Gradient
== END 2020-09-19 18:45 | disposition home or self-care (01) ==
LOC: ANHED 15:58 → ANH3MEDSUR 19:42
PROVIDERS: Emergency Medicine; Nurse Practitioner; Specialist; Admitting Provider Hospitalist; Emergency Provider General Practice; PCP Internal Medicine; Visit Provider Internal Medicine
PROC: (CPT 93312; principal; 2020-09-19 13:30)
DX: N28.0 Ischemia and infarction of kidney (principal); N20.0 Calculus of kidney; R10.9 Unspecified abdominal pain; J18.9 Pneumonia, unspecified organism; Z20.822 Contact with and (suspected) exposure to COVID-19; Z79.899 Other long term (current) drug therapy
CPT/HCPCS: 36415; 74018; 74177; 76775; 80053; 81001; 83690; 83735; 85025; 85027; 85055; 85610; 85730; 93312; 93320; 93325; 93976; 96361; 96365; 96367; 96372; 96374; 96375; 96376; 99285; A9270; C8929; C9803; G0378; G0379; J0131; J0456; J0696; J1170; J1650; J2250; J2405; J3010; J7030; J7040; Q9957; Q9967; U0003; U0005

== ENCOUNTER 2022-09-11 11:29 | Emergency (ER) | payer OTHER, SELFPAY ==
[2022-09-11 11:31] VITALS: BP 146/89; PULSE 79; RESP 18; TEMP 36.6; O2SAT 100
--- NOTE | 2022-09-11 12:22 | ED.GENADULT ---
HPI - General Adult General Chief complaint: Unspecified Stated complaint: Hemorrhoid Time Seen by Provider: 09/11/22 12:15 History of Present Illness HPI narrative: 47-year-old male history of hemorrhoids presented with rectal pain. Per patient usually has hemorrhoids, applies a cream and is improved. However he has had rectal pain that did not respond to the cream so presents to the ED for further evaluation. Denied fevers/chills, unintentional weight loss, abdominal pain, dysuria, diarrhea, rectal bleeding. PMH: hemorrhoids PSH: denied Medications: preparation H Allergies: no known drug allergies Related Data Home Medications Medication Instructions Recorded Confirmed Claritin 10 mg PO DAILY 09/17/20 09/17/20 multivitamin 1 tablet PO DAILY 09/17/20 09/17/20 Allergies Allergy/AdvReac Type Severity Reaction Status Date / Time No Known Allergies Allergy Verified 09/11/22 12:24 Review of Systems Review of Systems: See HPI [facility] Past Medical History Medical History (Updated 09/11/22 @ 13:05 by Delio Barrera MD) Kidney stones Patient denies medical problems Surgical History Surgical History H/O inguinal hernia repair Family History Family History (Updated 09/18/20 @ 22:08 by Georgina Rodriguez MD) Father Cerebrovascular accident COVID Heart attack Diabetes mellitus Mother Motor vehicle accident Social History Social History (Updated 09/18/20 @ 22:09 by Georgina Rodriguez MD) Social History: 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 Smoking status: Never smoker Alcohol intake: former Substance use: never Gender identity (if verbalized by the patient): Male Spiritual care concerns: No Exam Narrative: General: Alert, calm and cooperative, no acute distress, phonating, sitting comfortably during visit HEENT: Pupils equal round and reactive to light, extra ocular movements intact, no conjunctival injection, head atraumatic, neck supple without meningismus Abdominal: soft, non-tender, non-distended, no guarding, no rebound/peritoneal signs, no costovertebral tenderness to palpation Back: no midline tenderness to palpation, no step offs Rectal: Thrombosed hemorrhoid at with purple appearance 12 o clock approximately 1 cm in size, no rectal tears, patient did not tolerate SAMUEL Extremities: No edema, palpable peripheral pulses, warm, well perfused, no tenderness to bilateral calves Neurological: Alert, moving all extremities symmetrically, ambulating without deficit Radiologist Diagnostic: DIANNE Lind Course Vital Signs Vital signs: Vital Signs Temperature 97.9 F 09/11/22 11:31 Pulse Rate 79 09/11/22 11:31 Respiratory Rate 18 09/11/22 11:31 Blood Pressure 146/89 H 09/11/22 11:31 Pulse Oximetry 100 09/11/22 11:31 Oxygen Delivery Room Air 09/11/22 11:31 Temperature 97.9 F 09/11/22 11:31 Pulse Rate 79 09/11/22 11:31 Respiratory Rate 18 09/11/22 11:31 Blood Pressure 146/89 H 09/11/22 11:31 Pulse Oximetry 100 09/11/22 11:31 Oxygen Delivery Room Air 09/11/22 11:31 Procedures Other Procedure Procedure 1: Other Procedure: Incision and evacuation of thrombosed external hemorrhoid. Patient prepped and draped in usual sterile fashion. Betadine used to clean the area. Thrombosed external hemorrhoid located 12 o clock, 5 ml lidocaine with epinephrine infiltrated into hemorrhoid. With 11 blade, 0.5 cm elliptical incision created, 1 cm clot evacuated. Patient with reported improved symptoms. Patient tolerated procedure without problem. Medical Decision Making MDM Narrative Medical decision making narrative: 47 year old male history of hemorrhoids presented with persistent rectal pain. Physical exam notable for thrombosed external hemorrhoid 12 o clock, no surrounding erythema, no anal fissures, rem
== END 2022-09-11 13:22 | disposition home or self-care (01) ==
PROVIDERS: Emergency Provider Emergency Medicine; PCP Family Medicine
DX: K64.5 Perianal venous thrombosis (principal)
CPT/HCPCS: 46083; 99282

== ENCOUNTER 2022-10-03 14:01 | Observation (INO) | payer OTHER, SELFPAY ==
--- NOTE | ~2022-10-03 | XR_ITS ---
EXAMINATION: XR abdomen/kub 1V DATE: 10/04/2022 07:57 INDICATION: Left ureteral stone. TECHNIQUE: A supine view of the abdomen on 2 radiographs was obtained. COMPARISON: CT abdomen and pelvis 10/03/2022 FINDINGS: There are no dilated loops of bowel. The kidneys are obscured by bowel. There are phlebolit hs in the pelvis. There is a 9 mm stone in left renal pelvis. There is a 5 mm stone in proximal left ureter at L4. IMPRESSION: 1. 5 mm stone in proximal left ureter at L4. 2. 9 mm stone in left renal pelvis. Reviewed, dictated and finalized at location A.
--- NOTE | ~2022-10-03 | CT_ITS ---
EXAMINATION: CT abdomen pelvis w con DATE: 10/03/2022 15:37 INDICATION: Left lower quadrant abdominal pain. Nausea and vomiting. TECHNIQUE: Computed tomography (CT) of the abdomen and pelvis was performed with 100 mL Omnipaque 350 intravenous contrast. Automated exposure control and iterative reconstruction technique were employe d. The dose-length product was 1456.20 mGy-cm. COMPARISON: CT abdomen and pelvis 09/17/2020 FINDINGS: The visualized portions of the lung bases demonstrate mild atelectasis. No pleural effusion . The heart size is normal. No pericardial effusion. The liver, gallbladder, spleen, pancreas, and ad renal glands are normal. There is cortical thinning of right kidney. There are 4 mm and 3 mm stones i n right kidney. There is a delayed left-sided contrast nephrogram. There is a 2 mm stone in left kidn ey. There is a 9 mm stone in left renal pelvis. There is mild left hydronephrosis. There is a [address] one in proximal left ureter. There are no dilated loops of bowel. The appendix is normal. There are n o pathologically enlarged lymph nodes. There is no ascites. There is mild thoracic and lumbar spondyl osis. IMPRESSION: 1. 5 mm stone in proximal left ureter with mild left hydronephrosis. 2. Bilateral nonobstructing kidney stones. Reviewed, dictated and finalized at location E.
[2022-10-03 14:02] VITALS: BP 133/89; PULSE 54; RESP 20; TEMP 36.4; O2SAT 100
--- NOTE | 2022-10-03 14:29 | ED.ABDPAIN ---
HPI - Abdominal Pain General Chief Complaint: Abdominal Pain Stated Complaint: abd pain Time Seen by Provider: 10/03/22 14:10 History of Present Illness HPI narrative: This is a 47-year-old male, with reported past medical history of blood clot to the kidney, kidney stones, who presents emergency department complaining of left lower quadrant pain. He describes the pain as cramping and intermittently sharp, rated 10/10, radiating towards the groin. Is associated with nausea and one episode of nonbloody vomiting. He has no other complaints. Related Data Home Medications Medication Instructions Recorded Confirmed Claritin 10 mg PO DAILY 09/17/20 09/17/20 multivitamin 1 tablet PO DAILY 09/17/20 09/17/20 Allergies Allergy/AdvReac Type Severity Reaction Status Date / Time No Known Allergies Allergy Verified 10/03/22 14:19 Review of Systems Review of Systems: CONSTITUTIONAL: Denies fever, chills, or sweats. CARDIOVASCULAR: Denies chest pain, palpitations, or edema. RESPIRATORY: Denies cough or dyspnea. GASTROINTESTINAL: Left lower quadrant abdominal pain, nausea and nonbloody vomiting denies diarrhea. GENITOURINARY: Denies dysuria or hematuria. SKIN: Denies rash or itching. MUSCULOSKELETAL: Denies back pain, joint pain, or myalgia. NEUROLOGIC: Denies headache, numbness, dizziness, or weakness. PSYCHIATRIC: Denies anxiety or depression. 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 Smoking status: Never smoker Alcohol intake: current Substance use: never Substance use type: does not use Lack of Transportation: No Lack of Food: Never True Current Housing: I Have Housing Concerned About Future Housing: No Difficulty Paying Gas/Electric Bills: No Difficulty Paying for Meds: No Currently Unemployed: No Education: Trade/Vocational Certificate Difficulty w/ Childcare or Family Care: No Gender identity (if verbalized by the patient): Male Spiritual care concerns: No Exam Narrative: GENERAL: Well-developed, well-nourished, a appears uncomfortable HEAD: Normocephalic, atraumatic. EYES: PERRLA and EOMI. ENT: Nares clear, no rhinorrhea or epistaxis. Mucous membranes moist. Oropharynx without tonsillar hypertrophy exudate or other lesions. CHEST: Clear to auscultation. No respiratory distress. No wheezes rales or rhonchi HEART: Regular rate and rhythm. No murmur heard. Normal peripheral pulses. ABDOMEN: Soft, left lower quadrant abdominal pain without rebound and passive guarding, nondistended, normal active bowel sounds. : Normal external male genitalia. Circumcised. Cremasteric reflex intact. Testes normal to palpation EXTREMITIES: Normal range of motion. No edema. SKIN: Warm, dry, no rash. NEURO: Alert and oriented x3. Moving all 4 limbs purposefully. PSYCH: Normal mood and affect. Course Course Emergency Course: 17:54 - Despite multiple doses of morphine, Toradol and Zofran, the patient's pain and nausea is not controlled. BC within normal limits. Chemistries demonstrate mild hyponatremia with a sodium of 135. Lactic 2.2. Creatinine 1. UA not concerning for UTI. Shared decision making conversation had with the patient regarding admission for pain control versus discharge with pain and nausea medications. The patient requests admission. D
[2022-10-03] MEDS: SODIUM CHLORIDE 0.9% IV 2,000 ML 999 ML IV CONT (14:43)
[2022-10-03] MEDS: ONDANSETRON INJ 4 MG/2 ML VIAL IV PUSH (14:44)
[2022-10-03] MEDS: MORPHINE SULFATE (*CRX) 4 MG/ML INJ IV PUSH ×2 (14:44→16:51)
[2022-10-03 14:59] LABS: Basophils Absolute Auto 0.1 K/mm3 (0.0-0.1); Basophils Percent Auto 0.7 % (0.2-1.2); Eosinophils Absolute Auto 0.2 K/mm3 (0-0.3); Eosinophils Percent Auto 2.1 % (0-4.4); Immature Granulocyte Absolute 0.02 K/mm3 (0.00-0.031); Immature Granulocyte Percent A 0.3 % (0-0.5); Lymphocytes Absolute Auto 1.44 K/mm3 (0.9-3.2); Lymphocytes Percent Auto 20.5 % (18.3-44.2); Mean Corpuscular HGB Conc 33.3 g/dl (32-36); Mean Corpuscular Hemoglobin 28.6 pg (26-34); Mean Corpuscular Volume 85.9 fl (80-100); Mean Platelet Volume 10.9 fl (7.4-10.4); Monocytes Absolute Auto 0.5 K/mm3 (0.1-0.6); Monocytes Percent Auto 7.5 % (2.6-8.5); Neutrophils Absolute Auto 4.8 K/mm3 (1.3-6.7); Neutrophils Percent Auto 68.9 % (45.5-73.1); Platelet Count Result 148 k/mm3 (150-375); Red Blood Count 5.24 M/mm3 (4.6-6.20); Red Cell Distribution Width 13.1 % (11.5-14.5)
[2022-10-03 15:12] LABS: Alanine Aminotransferase 36 U/L (6-50); Albumin Level 4.6 g/dL (3.5-5.1); Alkaline Phosphatase 73 U/L (38-126); Anion Gap 6 mmol/L (8-16); Aspartate Amino Transferase 27 U/L (17-59); Bilirubin,Total 0.5 mg/dL (0.2-1.3); Blood Urea Nitrogen 15 mg/dL (9-20); Calcium 9.5 mg/dL (8.4-10.2); Carbon Dioxide 29 mmol/L (22-30); Chloride 100 mmol/L (98-107); Estimated CRCL calculation 105 ml/min; Estimated Glomerular Filt Rate > 60; Glucose 121 mg/dL (65-110); Lipase 60 U/L (23-300); Sodium 135 mmol/L (137-145)
[2022-10-03 15:13] LABS: Lactic Acid Reflex 2.2 mmol/L (0.7-2.0)
[2022-10-03 16:04] LABS: Appearance Urine Clear (Clear); Bacteria Urine None Seen /hpf; Bilirubin Urine Negative (Negative); Blood Urine 1+ (Negative); Color Urine Yellow (Yellow); Glucose Urine UA Negative (Negative); Ketones Urine Negative (Negative); Leukocyte Esterase Ur Trace LEU/UL (Negative); Nitrate Urine Negative (Negative); Non Pathogenic Casts 0-2; Protein Urine Negative (Negative); Specific Grav Ur 1.046 (1.001-1.035); Squamous Epithelial Cell Urine None seen /hpf (Few); Urobilinogen Urine 0.2 mg/dL (<2.0); WBC Urine 0-5 /hpf
[2022-10-03 16:05] LABS: Add Urine Microscopic? YES
[2022-10-03] MEDS: KETOROLAC 30 MG/ML VIAL (*BKC) IV PUSH (16:18)
[2022-10-03] MEDS: PROCHLORPERAZINE EDISYLATE 10 MG/2 ML VIAL IV PUSH (16:50)
[2022-10-03 17:06] VITALS: BP 132/71; PULSE 60; RESP 20; O2SAT 96
[2022-10-03 17:56] LABS: Reflex Lactic Acid Yes or No Add Lactic
[2022-10-03 18:19] LABS: Lactic Acid 1.6 mmol/L (0.7-2.0)
[2022-10-03] MEDS: SODIUM CHLORIDE 0.9% IV 1,000 ML 125 ML IV CONT (18:43)
[2022-10-03 18:44] VITALS: BP 127/81; PULSE 94; RESP 16; O2SAT 95
--- NOTE | 2022-10-03 19:21 | PC.NURSE ---
This patient, Osito Shafer, was admitted to 3 [facility] Surg Room 310-01. Patient/family oriented to hospital policies and general routines including ID bracelet, bed and alarms, visiting hours, pain management, procedures, bathroom and other care routines, personal items, smoking policy, room service/diet, and visiting hours. Information on how to activate the Rapid Response Team has been discussed. Patient/Family are encouraged to report perceived risks to care and to ask questions if they do not understand what they are told or what they should do.
[2022-10-03 19:28] VITALS: BMI 37.9
[2022-10-03 19:50] VITALS: BP 142/75; PULSE 75; RESP 18; TEMP 37.1; O2SAT 95
--- NOTE | 2022-10-03 21:10 | PM.IMHP ---
H&P: HPI History of Present Illness Date/Time: 10/03/22 21:00 Chief Complaint: Abdominal pain. Narrative: This is a pleasant 47-year-old male with history of kidney stones and renal infarct who presented to the emergency department via private vehicle for evaluation of abdominal pain. The patient provides the following history. 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 Late this morning his pain intensified and he describes a cramping and intermittently sharp in the left flank radiating to the groin. At its worst the pain is rated 10/10. Associated symptoms include nausea with emesis. Symptoms are similar to to those he experienced 2 years ago when he was hospitalized with a renal infarct. He reports chills but has not had a fever. He denies chest pain and shortness of breath. No dysuria or hematuria. cT of the abdomen and pelvis today showed a 5 mm stone in the proximal left ureter with mild left hydronephrosis and bilateral nonobstructing kidney stones. His symptoms have persisted despite receiving IV ketorolac and morphine and he is being admitted in this setting for supportive care and urology consultation. Review of Systems Review of Systems: Twelve systems were reviewed and are negative except for as per HPI. 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 Code status: Full code. Smoking status: Never smoker Alcohol intake: current Substance use: never Substance use type: does not use Lack of Transportation: No Lack of Food: Never True Current Housing: I Have Housing Concerned About Future Housing: No Difficulty Paying Gas/Electric Bills: No Difficulty Paying for Meds: No Currently Unemployed: No Education: Trade/Vocational Certificate Difficulty w/ Childcare or Family Care: No Additional living arrangements comments: Lives in [place]. Has 3 sons and 1 daughter. 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 Spiritual care concerns: No Meds Home Medications and Allergies Home Medications Medication Instructions Recorded Confirmed Type Claritin 10 mg PO DAILY 09/17/20 10/03/22 History multivitamin 1 tablet PO DAILY 09/17/20 10/03/22 History Allergies Allergy/AdvReac Type Severity Reaction Status Date / Time ethinyl estradiol Allergy Wheezing Verified 10/03/22 22:05 [From Seasonale ()] levonorgestrel Allergy Wheezing Verified 10/03/22 22:05 [From Seasonale ()] Vital Signs Vital Signs - 24 hr 10/03/22 14:02 10/03/22 17:06 10/03/22 18:44 Temperature 97.5 F L Pulse Rate 54 L 60 94 Respiratory Rate 20 20 16 Blood Pressure 133/89 132/71 127/81 Pulse Oximetry 100 96 95 Oxygen Delivery Room Air 10/03/22 19:50 Temperature 98.7 F Pulse Rate 75 Respiratory Rate 18 Blood Pressure 142/75 H Pulse Oximetry 95 Oxygen Delivery Exam Narrative: General: Well-developed, nontoxic-appearing male supine in bed in no acute distress. Weight: 190.8 kg. BMI: 37.9. HEENT: PERRL, EOMI. Sclera anicteric. Oral mucosa moist. Neck: Supple. Respiratory: Lungs are clear to auscultation bilaterally. Cardiovascular: Regular rate and rhythm with S1-S2. No murmur, rub, or gallop. Gastrointestinal: Abdomen is soft, obese, and nond
[2022-10-04] MEDS: SODIUM CHLORIDE 0.9% IV 1,000 ML 125 ML IV CONT (02:49)
[2022-10-04 06:04] VITALS: BP 125/84; PULSE 73; RESP 16; TEMP 36.4; O2SAT 97
[2022-10-04 06:34] LABS: Basophils Percent Auto 0.6 % (0.2-1.2); Eosinophils Absolute Auto 0.1 K/mm3 (0-0.3); Eosinophils Percent Auto 1.9 % (0-4.4); Hemoglobin 14.3 g/dL (14.0-18.0); Immature Granulocyte Absolute 0.01 K/mm3 (0.00-0.031); Immature Granulocyte Percent A 0.1 % (0-0.5); Lymphocytes Absolute Auto 1.65 K/mm3 (0.9-3.2); Lymphocytes Percent Auto 23.6 % (18.3-44.2); Mean Corpuscular HGB Conc 33.3 g/dl (32-36); Mean Corpuscular Hemoglobin 29.1 pg (26-34); Mean Corpuscular Volume 87.6 fl (80-100); Mean Platelet Volume 11.2 fl (7.4-10.4); Monocytes Absolute Auto 0.7 K/mm3 (0.1-0.6); Monocytes Percent Auto 10.6 % (2.6-8.5); Neutrophils Absolute Auto 4.4 K/mm3 (1.3-6.7); Neutrophils Percent Auto 63.2 % (45.5-73.1); Platelet Count Result 138 k/mm3 (150-375); Red Blood Count 4.91 M/mm3 (4.6-6.20); Red Cell Distribution Width 13.2 % (11.5-14.5)
[2022-10-04 06:56] LABS: Anion Gap 3 mmol/L (8-16); Blood Urea Nitrogen 14 mg/dL (9-20); Calcium 8.5 mg/dL (8.4-10.2); Carbon Dioxide 27 mmol/L (22-30); Chloride 104 mmol/L (98-107); Estimated CRCL calculation 76 ml/min; Estimated Glomerular Filt Rate 54; Glucose 101 mg/dL (65-110); Potassium 3.9 mmol/L (3.4-5.0); Sodium 134 mmol/L (137-145)
[2022-10-04 08:47] VITALS: O2SAT 97
--- NOTE | 2022-10-04 12:58 | WPDURCON ---
Assessment and Plan Assessment and plan (1) Calculus of proximal left ureter: Code(s): N20.1 - Calculus of ureter Status: Acute Assessment and Plan: Patient has no pain since last evening, he wishes to go home and try to pass his stone with pain meds and Flomax. He will f/u in the office for a KUB prior to ensure passage in 1-2 weeks. (2) Kidney stones: Code(s): N20.0 - Calculus of kidney Status: Acute Plan The bilateral stones are non obstructive, will monitor annually or discuss a lithotripsy as an outpatient. Urology Consult Note HPI Date Seen: 10/04/22 Time Seen: 09:30 Requesting Physician: Aidan Blanco MD Primary Care Provider: Samson Tellez, Consult Narrative Reason for consult: ureteral stone Narrative: Osito Shafer is a 47 year old male who presented to the ER on 10/03/22 with LLQ pain that radiated to the groin, accompanied by nausea, vomiting. He states the pain was sharp, started the day prior suddenly and worsened. He got one dose of Morphine in the ER and has not had any pain medication since. He states he has a history of stones and usually passes them on his own, and has never had stone surgery. He doesn't have a urologist. He denies dysuria, hematuria, fever, frequency or urgency. His creatinine is 1.40, WBC is 7.0, urine cultures pending, CT scan shows a 5mm proximal ureteral stone in the left side with hydronephrosis and bilateral non obstructive stones. KUB shows a 9mm left renal stone and the 5mm left ureteral stone. 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 Code status: Full code. Smoking status: Never smoker Alcohol intake: current Substance use: never Substance use type: does not use Lack of Transportation: No Lack of Food: Never True Current Housing: I Have Housing Concerned About Future Housing: No Difficulty Paying Gas/Electric Bills: No Difficulty Paying for Meds: No Currently Unemployed: No Education: Trade/Vocational Certificate Difficulty w/ Childcare or Family Care: No Additional living arrangements comments: Lives in [place]. Has 3 sons and 1 daughter. 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 Spiritual care concerns: No Meds Home Medications and Allergies Home Medications Medication Instructions Recorded Confirmed Type Claritin 10 mg PO DAILY 09/17/20 10/03/22 History multivitamin 1 tablet PO DAILY 09/17/20 10/03/22 History Allergies Allergy/AdvReac Type Severity Reaction Status Date / Time ethinyl estradiol Allergy Wheezing Verified 10/03/22 22:05 [From Seasonale ()] levonorgestrel Allergy Wheezing Verified 10/03/22 22:05 [From Seasonale ()] Vital Signs Vital Signs - 24 hr 10/03/22 14:02 10/03/22 17:06 10/03/22 18:44 Temperature 97.5 F L Pulse Rate 54 L 60 94 Respiratory Rate 20 20 16 Blood Pressure
--- NOTE | 2022-10-04 13:12 | PM.DS ---
DS: Admitting Diagnosis Discharge Date 10/04/22 Admitting Diagnosis nephrolithiasis DS: Discharge Diagnosis Discharge Diagnosis (1) Calculus of proximal left ureter: Code(s): N20.1 - Calculus of ureter Status: Acute (2) Hydronephrosis of left kidney: Code(s): N13.30 - Unspecified hydronephrosis Status: Acute (3) Bilateral kidney stones: Code(s): N20.0 - Calculus of kidney Status: Acute (4) Intractable pain: Code(s): R52 - Pain, unspecified Status: Acute DS: Summary Hospital Course Hospital Course: This is a 47-year-old male with past medical history of renal infarct and kidney stones of present to the ED on 10/03/2022 for evaluation of abdominal /flank pain. He had associated nausea and emesis as well as pain radiating to his groin. CT abdomen pelvis revealed a 5 mm stone in the proximal left ureter with mild left hydronephrosis and bilateral nonobstructing kidney stones. Patient was started on IV fluids and analgesics and urology consulted. Patient had x-ray performed on feeling 5 mm stone in the left proximal ureter at L4 and a 9 mm stone in the left renal pelvis. Patient decided against cystoscopy and stated that he would rather try to pass it on his own. His pain considerably improved. Urology recommending follow-up in their office with a repeat KUB in 1-2 weeks. Time Spent with Patient Time attestation: Total time spent providing and/or coordinating discharge services: Exam Narrative: GENERAL: Comfortable, no acute distress HENMT: moist mucous membranes EYES: EOM intact b/l NECK: no lymphadenopathy RESPIRATORY: clear to auscultation CARDIO: RRR GI: soft, nontender, bowel sounds present SKIN: no rashes EXTREMITIES: no edema, redness or tenderness DS: Data Data Completed and Pending Labs on day of discharge: Labs from last 24 hours 10/04/22 10/03/22 10/03/22 05:49 18:03 15:52 WBC 7.0 RBC 4.91 Hgb 14.3 Hct 43.0 MCV 87.6 MCH 29.1 MCHC 33.3 RDW 13.2 Plt Count 138 L MPV 11.2 H Immature Gran % (Auto) 0.1 Neut % (Auto) 63.2 Lymph % (Auto) 23.6 [place] % (Auto) 10.6 H Eos % (Auto) 1.9 Baso % (Auto) 0.6 Lymph # (Auto) 1.65 [place] # (Auto) 0.7 H Eos # (Auto) 0.1 Baso # (Auto) 0.0 Abs Immat Gran (auto) 0.01 Absolute Neuts (auto) 4.4 Absolute Nucleated RBC 0.0 Nucleated RBC % 0.0 % Immature Plt Fraction 7.0 Sodium 134 L Potassium 3.9 Chloride 104 Carbon Dioxide 27 Anion Gap 3 L BUN 14 Creatinine 1.40 H Estim Creat Clear Calc 76 Estimated GFR 54 L Glucose 101 Lactic Acid 1.6 Calcium 8.5 Magnesium 2.0 Total Bilirubin AST ALT Alkaline Phosphatase Total Protein Albumin Lipase Urine Color Yellow Urine Appearance Clear Urine pH 8.0 Ur Specific [place] 1.046 H Urine Protein Negative Urine Glucose (UA) Negative Urine Ketones Negative Ur Blood (Man) 1+ H Urine Nitrate Negative Urine Bilirubin Negative Urine Urobilinogen 0.2 Leukocyte Esterase Rfl Trace H Urine RBC 11-20 H Urine WBC 0-5 Ur Squamous Epith Cells None seen Urine Bacteria None seen Urine Casts 0-2 10/03/22 14:52 WBC 7.0 RBC 5.24 Hgb 15.0 Hct 45.0 MCV 85.9 MCH 28.6 MCHC 33.3 RDW 13.1 Plt Count 148 L MPV 10.9 H Immature Gran % (Auto) 0.3 Neut % (Auto) 68.9 Lymph % (Auto) 20.5 [place] % (Auto) 7.5 Eos % (Auto) 2.1 Baso % (Auto) 0.7 Lymph # (Auto) 1.44 [place] # (Auto) 0.5 Eos # (Auto) 0.2 Baso # (Auto) 0.1 Abs Immat Gran (auto) 0.02 Absolute Neuts (auto) 4.8 Absolute Nucleated RBC 0.0 Nucleated RBC % 0.0 % Immature Plt Fraction Sodium 135 L Potassium 4.0 Chloride 100 Carbon Dioxide 29 Anion Gap 6 L BUN 15 Creatinine 1.00 Estim Creat Clear Calc 105 Estimated GFR > 60 Glucose 121 H Lactic Acid 2.2 H Calcium 9.5 Magnesium Tot
== END 2022-10-04 15:30 | disposition home or self-care (01) ==
LOC: ANHED 17:57 → ANH3MEDSUR 19:06
PROVIDERS: Admitting Provider Internal Medicine; Emergency Provider Preventive Medicine Aerospace Medicine; PCP Family Medicine; Visit Provider Internal Medicine
DX: N13.2 Hydronephrosis with renal and ureteral calculous obstruction (principal)
CPT/HCPCS: 36415; 74018; 74177; 80048; 80053; 81001; 83605; 83690; 83735; 85025; 85055; 87086; 87088; 96360; 96361; 96365; 96375; 96376; 99285; G0378; J0696; J0780; J1885; J2270; J2405; J7030; Q9967

== ENCOUNTER 2022-10-18 10:09 | Outpatient (CLI) | payer OTHER, SELFPAY ==
--- NOTE | ~2022-10-18 | XR_ITS ---
EXAMINATION: XR abdomen/kub 1V DATE: 10/18/2022 10:37 INDICATION: Kidney stones. TECHNIQUE: A supine view of the abdomen on 2 radiographs was obtained. COMPARISON: Abdomen radiographs 10/04/2022, CT 10/03/2022 FINDINGS: There is a 3 mm stone in right kidney. There is an 8 mm stone in left kidney. There are phl eboliths in the pelvis. There is a 3 mm stone at left ureterovesicular junction. IMPRESSION: 1. 3 mm stone at left ureterovesicular junction. 2. Bilateral kidney stones. Reviewed, dictated and finalized at location E.
== END 2022-10-18 10:10 | disposition home or self-care (01) ==
PROVIDERS: PCP Family Medicine; Visit Provider Nurse Practitioner Adult Health
DX: N20.1 Calculus of ureter (principal); N20.0 Calculus of kidney
CPT/HCPCS: 74018

== ENCOUNTER → 2022-11-09 15:13 | Outpatient (CLI) | payer OTHER, SELFPAY ==
--- NOTE | ~2022-11-09 | XR_ITS ---
EXAMINATION: XR abdomen/kub 1V INDICATION: Left kidney stone follow-up TECHNIQUE: Supine views of the abdomen were obtained on 2 radiographs. COMPARISON: 10/10/2022 FINDINGS: An 8 mm stone projects in the upper pole of the left kidney. The previously described 3 mm left distal ureteral stone now appears to be in the ureterovesicular junction. There are phleboliths of the pelvis. The bowel gas pattern is normal. The visualized lung bases are clear. IMPRESSION: 1. 3 mm stone at the left ureterovesicular junction. 2. Left nephrolithiasis. Reviewed, dictated and finalized at location L.
== END ==
PROVIDERS: PCP Nurse Practitioner Adult Health; Visit Provider Nurse Practitioner Adult Health
DX: N20.2 Calculus of kidney with calculus of ureter (principal)
CPT/HCPCS: 74018